=== PATIENT | female | born 1990 | race American Indian/Alaskan Native ===

== ENCOUNTER 2018-03-31 03:23 | Outpatient (CLI) | payer MEDICAID ==
[2018-03-31] MEDS ORDERED: LACTATED RINGERS 500 ML IV ONE (04:47)
[2018-03-31 05:02] VITALS: BP 120/63
[2018-03-31 05:34] LABS: Bilirubin,Urine NEG (Negative); Blood,Urine NEG (Negative); Color,Urine Yellow (Yellow); Mucus,Urine 2+ /HPF
[2018-04-01 14:21] LABS: Amphetamine Screen,Urine PRESUMPTIVE NEGATIVE; Benzodiazepines Screen,Urine PRESUMPTIVE NEGATIVE; Cocaine Screen,Urine PRESUMPTIVE NEGATIVE; Methadone Screen,Urine PRESUMPTIVE NEGATIVE; Opiate Screen,Urine PRESUMPTIVE NEGATIVE
[2018-04-01 14:38] LABS: Cannabinoid Screen,Urine PRESUMPTIVE POSITIVE
== END 2018-03-31 07:30 | disposition home or self-care (01) ==
LOC: TRG 03:23
PROVIDERS: ATTEND Obstetrics & Gynecology
DX: O46.93 Antepartum hemorrhage, unspecified, third trimester (principal); Z3A.29 29 weeks gestation of pregnancy; Z79.899 Other long term (current) drug therapy; Z87.891 Personal history of nicotine dependence
CPT/HCPCS: 59025; 80307; 81001; 87086